=== PATIENT | male | born 1990 | race Caucasian/White ===

== ENCOUNTER 2018-09-09 21:00 | Emergency (ER) | payer MEDICAID ==
[2018-09-09] MEDS ORDERED: NS 1,000 ML IV ONE (21:31)
--- NOTE | 2018-09-09 21:31 | EDPHY ---
H & P Stated Complaint: Body numbness, anxiety, KELLER, "trouble speaking" Time Seen by Provider: 09/09/18 21:22 HPI/ROS: HPI: This is a 27-year-old male who presents with Chief Complaint: Body numbness, anxiety, KELLER, "trouble speaking" Location: Body Quality: Numbness Duration: Lasting approximately 1 and 0.5 hr Signs and Symptoms: no shortness of breath at rest, no shortness of breath on exertion, no cough, no chest pain, no palpitations, no lower extremity edema, no wheezing, no orthopnea, no paroxysmal nocturnal dyspnea, no fever, no injury/ trauma, no hemoptysis, no carpal pedal spasms Timing: Acute, improving Severity: Moderate Context: Patient was at the gym working out around 6:00 p.m. And then went into the sauna around 7:30 p.m. He he reports that once he arrived in the Saturday he started to feel lightheaded and then his whole body bilaterally went "numb." Patient reports that he has a generalized headache and feel nauseous. He reports that he was not as clear cognitively as he was before. He reports that he worked out for approximately an hour and half and did not drink enough fluids or eating of today. He admits to anxiety. Concerned he's having a stroke "no oxygen to my brain" Modifying Factors: None Comment: ROS: A comprehensive 10 system review of systems is otherwise negative aside from elements mentioned in the history of present illness. MEDICAL/SURGICAL/SOCIAL HISTORY: Medical history: Anxiety attack. Does not take any regular medications. Surgical history: Denies Social history: Never smoked. Denies drug use. CONSTITUTIONAL: Anxious extremely well-appearing young adult white male, awake and alert, no obvious distress HEENT: Atraumatic and normocephalic, PERRL, EOMI. Nares patent; no rhinorrhea; no nasal mucosal edema. Tympanic membranes clear. Oropharynx clear, no exudate and moist pink mucosa. Airway patent. No lymphadenopathy. No meningismus. Cardiovascular: Normal S1/S2, regular rate, regular rhythm, without murmur rub or gallop. PULMONARY/CHEST: Symmetrical and nontender. Clear to auscultation bilaterally. Good air movement. No accessory muscle usage. ABDOMEN: Soft, nondistended, nontender, no rebound, no guarding, no peritoneal signs, no masses or organomegaly. No CVAT. EXTREMITIES: 2/2 pulses, strength 5/5, no deformities, no clubbing, no cyanosis or edema. NEUROLOGICAL: no focal neuro deficits. GCS 15. Speech clear. Cranial nerves 2- 12 grossly intact. Normal cerebellar testing. Normal [id number] testing. SKIN: Warm and dry, no erythema. no rash. Good capillary refill. Source: Patient Exam Limitations: No limitations - Personal History Current Tetanus Diphtheria and Acellular Pertussis (TDAP): No - Medical/Surgical History Hx Asthma: No Hx Chronic Respiratory Disease: No Hx Diabetes: No Hx Cardiac Disease: No Hx Renal Disease: No Hx Cirrhosis: No Hx Alcoholism: No Hx HIV/AIDS: No Hx Splenectomy or Spleen Trauma: No Other PMH: Anxiety attack when 18yo - Social History Smoking Status: Never smoked Constitutional: Initial Vital Signs Temperature (C) 36.3 C 09/09/18 21:01 Heart Rate 86 09/09/18 21:01 Respiratory Rate 20 09/09/18 21:01 Blood Pressure 146/74 H 09/09/18 21:01 O2 Sat (%) 99 09/09/18 21:01 O2 Delivery Mode Room Air Allergies/Adverse Reactions: No Known Allergies Allergy (Unverified 09/09/18 21:05) Home Medications: Medication Instructions Recorded NK [No Known Home Meds] 09/09/18 Medical Decision Making - Diagnostics Imaging Results: Imaging Impressions Head CT 09/09/18 21:33 Impression: 1. No significant intracranial abnormality seen. If symptoms worsen, additional imaging may be necessary. Findings discussed with Allie Troy PAC at 22:03 hour, 09/09/2018. ED Course/Re-evaluation: Vital signs reviewed and stable upon arrival. Placed on environmental monitoring specialist. IV access and laboratory studies ordered along with head CT scan 2204: Called by radiologist, Dr. Huynh, who reports head CT scan shows no acute intracranial process. 2207: Laboratory studies reviewed. No signs of leukocytosis/anemia/platelet dysfunction/BEVERLY/electrolyte imbalance/rhabdomyolysis Patient has no signs of CVA, TIA, temporal arteritis, migraine headache, Ramsey's palsy 2215: Road test past. Reassessed patient who reports complete relief of symptoms. Does not have a primary care provider and I will give a referral to the [facility] This patient was seen under the supervision of my secondary supervising physician. I evaluated care for this patient independently. Discussed this patient with Dr. Jansen who did not see the patient. Differential Diagnosis: Weakness including but not limited to electrolyte abnormality, depression, anxiety, CVA, spinal cord abnormality, and infectious causes. - Data Points Laboratory Results: Laboratory Results 09/09/18 21:36 09/09/18 21:36 09/09/18 12 21:36 21:36 WBC 8.58 10^3/uL 10^3/uL (3.80-9.50) RBC 4.76 10^6/uL 10^6/uL (4.40-6.38) Hgb 15.1 g/dL g/dL (13.7-17.5) Hct 42.8 % % (40.0-51.0) MCV 89.9 fL fL (81.5-99.8) MCH 31.7 pg pg (27.9-34.1) MCHC 35.3 g/dL g/dL (32.4-36.7) RDW 12.8 % % (11.5-15.2) Plt Count 177 10^3/uL 10^3/uL (150-400) MPV 12.3 fL H fL (8.7-11.7) Neut % (Auto) 59.1 % % (39.3-74.2) Lymph % (Auto) 29.4 % % (15.0-45.0) [place] % (Auto) 6.3 % % (4.5-13.0) Eos % (Auto) 4.3 % % (0.6-7.6) Baso % (Auto) 0.7 % % (0.3-1.7) Nucleat RBC Rel Count 0.0 % % (0.0-0.2) Absolute Neuts (auto) 5.07 10^3/uL 10^3/uL (1.70-6.50) Absolute Lymphs (auto) 2.52 10^3/uL 10^3/uL (1.00-3.00) Absolute Monos (auto) 0.54 10^3/uL 10^3/uL (0.30-0.80) Absolute Eos (auto) 0.37 10^3/uL 10^3/uL (0.03-0.40) Absolute Basos (auto) 0.06 10^3/uL 10^3/uL (0.02-0.10) Absolute Nucleated RBC 0.00 10^3/uL 10^3/uL (0-0.01) Immature Gran % 0.2 % % (0.0-1.1) Immature Gran # 0.02 10^3/uL 10^3/uL (0.00-0.10) Sodium 136 mEq/L mEq/L (135-145) Potassium 3.9 mEq/L mEq/L (3.5-5.2) Chloride 102 mEq/L mEq/L (97-110) Carbon Dioxide 24 mEq/l mEq/l (22-31) Anion Gap 10 mEq/L mEq/L (6-14) BUN 12 mg/dL mg/dL (7-23) Creatinine 0.8 mg/dL mg/dL (0.7-1.3) Estimated GFR > 60 Glucose 88 mg/dL mg/dL (70-100) Calcium 9.9 mg/dL mg/dL (8.5-10.4) Creatine Kinase 74 IU/L IU/L (0-224) Medications Given: Discontinued Medications Sodium Chloride (Ns) 1,000 mls @ 0 mls/hr IV ONCE ONE; Wide Open PRN Reason: Protocol Stop: 09/09/18 21:32 Last Admin: 09/09/18 21:43 Dose: 1,000 mls Lorazepam (Ativan Injection) 1 mg IVP EDNOW ONE Stop: 09/09/18 21:33 Last Admin: 09/09/18 21:42 Dose: 1 mg Departure - Departure Disposition: Home, Routine, Self-Care Clinical Impression: Paresthesias/numbness Condition: Good Instructions: Paresthesia (ED) Additional Instructions: Rest as much as possible until you are feeling better. Consume a minimum of 8-10 glasses of water or electrolyte fluid replacement drinks that include Gatorade, Powerade, Pedialyte. Eat a bland diet for the next 48 hours and then slowly advance as tolerated. Please establish primary care at the [facility] in the next 7-10 days. Referrals: [facility],. [Clinic] - As per Instructions
[2018-09-09] MEDS ORDERED: LORazepam 2 MG/ML INJ IVP ONE (21:32)
[2018-09-09 21:47] LABS: PLATELET COUNT 177 10^3/uL (150-400)
[2018-09-09 22:00] LABS: CREATINE KINASE 74 IU/L (0-224)
[2018-09-09 22:08] VITALS: BP 124/77
--- NOTE | 2018-09-10 21:15 | CPEKG ---
Test Reason : OPEN Blood Pressure : / mmHG Vent. Rate : 072 BPM Atrial Rate : 072 BPM P-R Int : 155 ms QRS Dur : 099 ms QT Int : 381 ms P-R-T Axes : 073 027 033 degrees QTc Int : [address] elev, probable normal early repol pattern Confirmed by Kim Jansen ([id number]) on 09/10/2018 9:15:27 PM Referred By: Confirmed By:Kim Jansen
== END 2018-09-09 22:30 | disposition home or self-care (01) ==
DX: R51 Headache (principal); R20.2 Paresthesia of skin; F41.9 Anxiety disorder, unspecified; E86.9 Volume depletion, unspecified
CPT/HCPCS: 96374; J2060